=== PATIENT | male | born 1960 | race Caucasian/White ===

== ENCOUNTER 2017-11-24 19:06 | Inpatient (IN) | payer BC ==
[~2017-11-24] VITALS: Ht 180.3 cm; Wt 111.0 kg
[~2017-11-24 19:06] MED LIST: ADULT LOW DOSE81 M1 PO; ALEVE220 MG PO; Advair HFA 115/21 IH; CILOSTAZOL100 MG PO; FUROSEMIDE40 MG PO; GLUCOPHAGE1000 MG PO; Glucophage PO; HYDROCODON-ACE1 EAC8 PO; HYPERTENSION MED; Habitrol,Nicoderm CQ TD; LASIX40 MG PO; LISINOPRIL20 MG PO; LOPRESSOR25 MG PO; Lasix PO; Lopressor PO; METFORMIN HCL500 MG PO; METOPROLOL SUC100 MG PO; NORVASC5 MG PO; Norvasc PO; PRINIVIL20 MG PO; Zestril,Prinivil PO
[2017-11-24 19:36] LABS: HEMATOCRIT 35.6 % (38.0-50.0); HEMOGLOBIN 11.6 G/DL (12.5-16.6); MCH 27.1 PG (29.0-34.0); MCHC 32.6 G/DL (30.0-36.0); MCV 83.2 FL (86-99); PLATELET COUNT 130 K/uL (156-360); RBC DIS.WIDTH-CV 17.8 % (11.8-14.6); RBC DIS.WIDTH-SD 53.2 % (39-53); RED BLOOD COUNT 4.28 M/uL (4.00-5.50); WHITE BLOOD COUNT 6.4 K/uL (4.1-10.2)
[2017-11-24] MEDS ORDERED: HYDROCHLOROTH12.5 M3 PO (19:44)
[2017-11-24] MEDS ORDERED: AMARYL2 MG PO (19:44)
[2017-11-24 19:50] LABS: ALBUMIN 3.3 g/dL (3.2-4.8); CHLORIDE 109 mEq/L (99-109); POTASSIUM 5.6 mEq/L (3.7-5.4); SODIUM 139 mEq/L (136-147)
[2017-11-24 19:52] LABS: GLUCOSE 216 mg/dL (70-99)
[2017-11-24 19:53] LABS: TOTAL PROTEIN 6.7 g/dL (6.4-8.3)
[2017-11-24 19:54] LABS: TOTAL BILIRUBIN 1.5 mg/dL (0.0-1.0)
[2017-11-24 19:56] LABS: ALKALINE PHOSPHATASE 192 IU/L (3-129); CREATININE 1.8 mg/dL (0.6-1.3); GFR ESTIMATE (CALCULATED) 41 mL/min/ (58.99-99999)
[2017-11-24 19:57] LABS: UREA NITROGEN (BUN) 39 mg/dL (9-23)
[2017-11-24 19:58] LABS: AST (GOT) 23 IU/L (2-34)
[2017-11-24 19:59] LABS: ALT (GPT) 15 IU/L (3-49)
[2017-11-24 20:32] LABS: TROP-I INTERPRETATION NEGATIVE; TROPONIN-I 0.12 ng/mL (0.0-0.30)
[2017-11-24 21:15] LABS: APPEARANCE CLEAR ((CLEAR)); BILIRUBIN NEGATIVE; BLOOD SMALL; COLOR YELLOW ((YELLOW)); GLUCOSE (STRIP) NEGATIVE; KETONES NEGATIVE; LEUKOCYTES NEGATIVE; NITRITE NEGATIVE; PROTEIN (STRIP) 100; SPECIFIC GRAVITY 1.013 (1.000-1.030); UROBILINOGEN 0.2 MG/DL (0.2-1.0)
[2017-11-24] MEDS ORDERED: CINNAMON500 MG PO (21:18)
[2017-11-24] MEDS ORDERED: CENTRUM SILVER1 EAC5 PO (21:18)
[2017-11-24] MEDS ORDERED: METFORMIN HCL1000 MG PO (21:18)
[2017-11-24] MEDS ORDERED: VITAMIN B-1000 MCG/1 PO (21:18)
[2017-11-24 21:21] LABS: BACTERIA NONE SEEN /HPF; EPITHELIAL CELLS RARE /HPF; MUCUS TRACE /LPF; RED BLOOD CELLS 0-5 /HPF (0-5); UCUL ADDED? NO; WHITE BLOOD CELLS 0-5 /HPF (0-5)
[2017-11-24 23:30] VITALS: BP 164/80
[2017-11-25 04:00] VITALS: BP 150/67
[2017-11-25 05:21] LABS: MCH 26.4 PG (29.0-34.0); MCHC 31.4 G/DL (30.0-36.0); MCV 83.9 FL (86-99); PLATELET COUNT 129 K/uL (156-360); RBC DIS.WIDTH-CV 17.7 % (11.8-14.6); RBC DIS.WIDTH-SD 54.3 % (39-53); RED BLOOD COUNT 4.17 M/uL (4.00-5.50)
[2017-11-25 05:52] LABS: TROP-I INTERPRETATION NEGATIVE; TROPONIN-I 0.12 ng/mL (0.0-0.30)
[2017-11-25 06:05] LABS: CHLORIDE 110 MEQ/L (99-109); CREATININE 1.7 MG/DL (0.6-1.3); GFR ESTIMATE (CALCULATED) 44 mL/min/ (58.99-99999); GLUCOSE 133 mg/dL (70-99); POTASSIUM 5.4 MEQ/L (3.7-5.4); SODIUM 138 MEQ/L (136-147); UREA NITROGEN (BUN) 36 mg/dL (9-23)
[2017-11-25 06:37] LABS: MAGNESIUM 1.9 mg/dl (1.3-2.7)
[2017-11-25 06:42] LABS: PHOSPHORUS 3.5 mg/dL (2.5-4.9)
[2017-11-25 07:21] VITALS: BP 153/69
[2017-11-25 10:50] LABS: INTER. NORMALIZED RATIO 1.3
[2017-11-25 10:53] LABS: PTT 36.5 SEC (25-37)
[2017-11-25 11:44] LABS: TROP-I INTERPRETATION NEGATIVE; TROPONIN-I 0.12 ng/mL (0.0-0.30)
[2017-11-25 12:11] VITALS: BP 151/69
[2017-11-25 14:51] LABS: TYPE OF FLUID PARACENTESIS
[2017-11-25 15:35] LABS: BODY FLUID GLUCOSE 164 MG/DL; BODY FLUID LDH 66 IU/L
[2017-11-25 15:36] LABS: BODY FLUID PROTEIN < 3.0 G/DL
[2017-11-25 15:52] LABS: APPEARANCE HAZY-YELLOW; BODY FLUID EOSINOPHILS 0 % (0-25); BODY FLUID RBC'S 2000 /MM^3 (0-100); BODY FLUID WBC'S 314 /MM^3 (0-500); MONONUCLEAR WBC'S 97 %; POLYNUCLEAR WBC'S 3 % (0-25)
[2017-11-25 15:55] VITALS: BP 125/65
[2017-11-25 15:57] VITALS: BP 156/77
[2017-11-25 20:00] VITALS: BP 103/51
[2017-11-26] VITALS: BP 119/67
[2017-11-26 04:03] VITALS: BP 98/55
[2017-11-26 06:10] LABS: HEMATOCRIT 35.3 % (38.0-50.0); MCH 25.9 PG (29.0-34.0); MCHC 31.2 G/DL (30.0-36.0); MCV 83.3 FL (86-99); PLATELET COUNT 143 K/uL (156-360); RBC DIS.WIDTH-CV 17.6 % (11.8-14.6); RBC DIS.WIDTH-SD 53.4 % (39-53); RED BLOOD COUNT 4.24 M/uL (4.00-5.50); WHITE BLOOD COUNT 5.9 K/uL (4.1-10.2)
[2017-11-26 06:37] LABS: CHLORIDE 105 MEQ/L (99-109); GFR ESTIMATE (CALCULATED) 37 mL/min/ (58.99-99999); GLUCOSE 74 mg/dL (70-99); POTASSIUM 4.7 MEQ/L (3.7-5.4); SODIUM 136 MEQ/L (136-147); UREA NITROGEN (BUN) 43 mg/dL (9-23)
[2017-11-26 07:46] VITALS: BP 124/65
[2017-11-26 16:04] VITALS: BP 132/67
[2017-11-27] VITALS (7 sets, daily range): BP systolic 107–124; BP diastolic 53–66
[2017-11-27 06:21] LABS: HEMATOCRIT 36.9 % (38.0-50.0); HEMOGLOBIN 11.7 G/DL (12.5-16.6); MCH 26.7 PG (29.0-34.0); MCHC 31.7 G/DL (30.0-36.0); MCV 84.1 FL (86-99); PLATELET COUNT 140 K/uL (156-360); RBC DIS.WIDTH-CV 17.8 % (11.8-14.6); RBC DIS.WIDTH-SD 54.4 % (39-53); RED BLOOD COUNT 4.39 M/uL (4.00-5.50); WHITE BLOOD COUNT 6.9 K/uL (4.1-10.2)
[2017-11-27 06:57] LABS: CHLORIDE 102 MEQ/L (99-109); CREATININE 2.4 MG/DL (0.6-1.3); GFR ESTIMATE (CALCULATED) 30 mL/min/ (58.99-99999); SODIUM 134 MEQ/L (136-147); UREA NITROGEN (BUN) 56 mg/dL (9-23)
[2017-11-27 07:00] LABS: GLUCOSE 38 mg/dL (70-99)
[2017-11-28 02:10] LABS: UR CREATININE CONCENTRATION 103.4 MG/DL
[2017-11-28 03:33] VITALS: BP 108/53
[2017-11-28 05:52] LABS: HEMATOCRIT 36.4 % (38.0-50.0); HEMOGLOBIN 11.3 G/DL (12.5-16.6); MCH 25.9 PG (29.0-34.0); MCV 83.3 FL (86-99); PLATELET COUNT 128 K/uL (156-360); RBC DIS.WIDTH-CV 17.5 % (11.8-14.6); RBC DIS.WIDTH-SD 53.4 % (39-53); RED BLOOD COUNT 4.37 M/uL (4.00-5.50); WHITE BLOOD COUNT 6.8 K/uL (4.1-10.2)
[2017-11-28 06:34] LABS: ALBUMIN 3.2 G/DL (3.2-4.8); CHLORIDE 104 MEQ/L (99-109); CREATININE 2.7 MG/DL (0.6-1.3); GFR ESTIMATE (CALCULATED) 26 mL/min/ (58.99-99999); POTASSIUM 5.2 MEQ/L (3.7-5.4); SODIUM 132 MEQ/L (136-147); UREA NITROGEN (BUN) 65 mg/dL (9-23)
[2017-11-28 06:36] LABS: GLUCOSE 120 mg/dL (70-99); PHOSPHORUS 5.2 mg/dL (2.5-4.9)
[2017-11-28 07:48] VITALS: BP 129/66
[2017-11-28 08:04] LABS: ALBUMIN 3.1 G/DL (3.2-4.8); ALKALINE PHOSPHATASE 158 IU/L (3-129); ALT (GPT) 14 IU/L (3-49); AST (GOT) 23 IU/L (2-34); CHLORIDE 103 MEQ/L (99-109); CREATININE 2.7 MG/DL (0.6-1.3); FERRITIN 52 NG/ML (22-322); GFR ESTIMATE (CALCULATED) 26 mL/min/ (58.99-99999); GLUCOSE 117 mg/dL (70-99); IRON 54 MCG/DL (35-150); POTASSIUM 5.2 MEQ/L (3.7-5.4); SODIUM 133 MEQ/L (136-147); TRANSFERRIN (TIBC) 350.9 mg/dL (215-380); TRANSFERRIN SATUR. 15 % (20-55); UREA NITROGEN (BUN) 65 mg/dL (9-23); URIC ACID 9.1 mg/dL (3.1-9.2)
[2017-11-28 08:07] LABS: FOLIC ACID (FOLATE) 12.5 NG/ML (5.0-22.0)
[2017-11-28 10:21] LABS: HEPATITIS B SURFACE ANTIGEN Nonreactive; HEPATITIS C ANTIBODY Nonreactive
[2017-11-28 10:22] LABS: ANTI-HEPATITIS A VIRUS (IGM) Nonreactive
[2017-11-28 10:23] LABS: ANTI-HEPATITIS B CORE (IGM) Nonreactive
[2017-11-28 11:42] VITALS: BP 132/65
[2017-11-28 15:49] VITALS: BP 125/67
[2017-11-28 20:29] VITALS: BP 125/60
[2017-11-28 23:59] VITALS: BP 152/68
[2017-11-29 03:47] VITALS: BP 133/62
[2017-11-29 06:42] LABS: BASOPHIL (%) 0.8 % (0-1); BASOPHIL COUNT 0.1 K/uL (0-0.1); EOSINOPHIL (%) 2.2 % (0-5); EOSINOPHIL COUNT 0.1 K/uL (0-0.3); HEMATOCRIT 35.4 % (38.0-50.0); HEMOGLOBIN 11.3 G/DL (12.5-16.6); IMMATURE GRANULOCYTE (%) 0.3 % (0.0-0.7); LYMPHOCYTE (%) 19.1 % (15-42); LYMPHOCYTE COUNT 1.2 K/uL (1.0-2.8); MCH 26.5 PG (29.0-34.0); MCHC 31.9 G/DL (30.0-36.0); MCV 83.1 FL (86-99); MONOCYTE (%) 12.5 % (3-12); MONOCYTE COUNT 0.8 K/uL (0-0.8); NEUTROPHIL (%) 65.1 % (45-76); NEUTROPHIL COUNT 4.2 K/uL (1.8-6.4); PLATELET COUNT 130 K/uL (156-360); RBC DIS.WIDTH-CV 17.5 % (11.8-14.6); RBC DIS.WIDTH-SD 52.5 % (39-53); RED BLOOD COUNT 4.26 M/uL (4.00-5.50); WHITE BLOOD COUNT 6.5 K/uL (4.1-10.2)
[2017-11-29 07:26] LABS: ALBUMIN 3.4 G/DL (3.2-4.8); CHLORIDE 104 MEQ/L (99-109); CREATININE 2.4 MG/DL (0.6-1.3); GFR ESTIMATE (CALCULATED) 30 mL/min/ (58.99-99999); GLUCOSE 136 mg/dL (70-99); POTASSIUM 5.1 MEQ/L (3.7-5.4); SODIUM 132 MEQ/L (136-147); UREA NITROGEN (BUN) 64 mg/dL (9-23)
[2017-11-29 07:30] VITALS: BP 131/70
[2017-11-29 12:07] VITALS: BP 150/78
[2017-11-29] MEDS ORDERED: ATORVASTATIN CA40 MG PO (13:02)
[2017-11-29] MEDS ORDERED: TOPROL XL25 MG PO (13:03)
== END 2017-11-29 14:47 | disposition home or self-care (01) | DRG 947 ==
LOC: EME 19:06 → EDOF 22:09 → 5SOUTH 22:09 → ENRESERV 22:15 → 5SOUTH 23:30
PROVIDERS: Hospitalist; Internal Medicine; Internal Medicine Nephrology; Radiology Diagnostic Radiology
PROC: 0W9G3ZZ Drainage of Peritoneal Cavity, Percutaneous Approach (ICD-10-PCS; principal; 2017-11-25)
DX: R18.8 Other ascites (principal); I50.23 Acute on chronic systolic (congestive) heart failure; E11.649 Type 2 diabetes mellitus with hypoglycemia without coma; N17.9 Acute kidney failure, unspecified; E66.9 Obesity, unspecified; E66.01 Morbid (severe) obesity due to excess calories; I27.20 Pulmonary hypertension, unspecified; I13.0 Hypertensive heart and chronic kidney disease with heart failure and stage 1 through stage 4 chronic kidney disease, or unspecified chronic kidney disease; E11.22 Type 2 diabetes mellitus with diabetic chronic kidney disease; I11.0 Hypertensive heart disease with heart failure; E11.51 Type 2 diabetes mellitus with diabetic peripheral angiopathy without gangrene; E87.5 Hyperkalemia; E78.5 Hyperlipidemia, unspecified; F17.210 Nicotine dependence, cigarettes, uncomplicated; J44.9 Chronic obstructive pulmonary disease, unspecified; K74.60 Unspecified cirrhosis of liver; N18.4 Chronic kidney disease, stage 4 (severe); R60.1 Generalized edema; I08.1 Rheumatic disorders of both mitral and tricuspid valves; K59.00 Constipation, unspecified; E87.1 Hypo-osmolality and hyponatremia; I87.2 Venous insufficiency (chronic) (peripheral); E78.00 Pure hypercholesterolemia, unspecified; Z80.1 Family history of malignant neoplasm of trachea, bronchus and lung; Z80.42 Family history of malignant neoplasm of prostate; Z68.34 Body mass index [BMI] 34.0-34.9, adult; Z79.84 Long term (current) use of oral hypoglycemic drugs; K80.20 Calculus of gallbladder without cholecystitis without obstruction
CPT/HCPCS: 49083; 71045; 71046; 74176; 80048; 80053; 80069; 80074; 81003; 82040; 82570; 82607; 82728; 82746; 82945; 82948; 83540; 83615 91; 83735; 83880; 83935; 84100; 84157; 84300; 84466; 84484; 84550; 85025; 85027; 85610; 85730; 87070; 87205; 88108; 88305; 89051; 93005; 93306; 99281; 99285; J1644; J1815; J1940; J2405; P9047

== ENCOUNTER → 2017-12-27 | Outpatient (CLI) | payer BC ==
[~2017-12-27] MED LIST changes: +AMARYL2 MG PO; +ATORVASTATIN CA40 MG PO; +CENTRUM SILVER1 EAC5 PO; +CINNAMON500 MG PO; +HYDROCHLOROTH12.5 M3 PO; +METFORMIN HCL1000 MG PO; +TOPROL XL25 MG PO; +VITAMIN B-1000 MCG/1 PO
[2017-12-27 14:45] LABS: TYPE OF FLUID PARACENTESIS
[2017-12-27 14:57] LABS: APPEARANCE SL. HAZY-YELLOW; BODY FLUID RBC'S 2000 /MM^3 (0-100); BODY FLUID WBC'S 302 /MM^3 (0-500)
[2017-12-27 16:33] LABS: BODY FLUID EOSINOPHILS 0 % (0-25); MONONUCLEAR WBC'S 66 %; POLYNUCLEAR WBC'S 34 % (0-25)
== END | disposition home or self-care (01) ==
LOC: RAD 13:24
PROVIDERS: Internal Medicine Gastroenterology
PROC: 0W9G3ZZ Drainage of Peritoneal Cavity, Percutaneous Approach (ICD-10-PCS; principal; 2017-12-27)
DX: R18.8 Other ascites (principal); K74.60 Unspecified cirrhosis of liver
CPT/HCPCS: 49083; 89051

== ENCOUNTER → 2018-01-11 | Outpatient (CLI) | payer BC ==
[~2018-01-11] VITALS: Ht 180.3 cm; Wt 89.8 kg
[~2018-01-11] MED LIST changes: +ASPIRIN81 M2 PO; +ENTRESTO 24 MG1 EACH PO; +FLUID PILL PO; +LIPITOR40 MG PO
== END | disposition home or self-care (01) ==
LOC: AMB 12-28 10:00
PROVIDERS: Internal Medicine Gastroenterology
PROC: 0DB98ZX Excision of Duodenum, Via Natural or Artificial Opening Endoscopic, Diagnostic (ICD-10-PCS; principal; 2018-01-11)
PROC: 0DB68ZX Excision of Stomach, Via Natural or Artificial Opening Endoscopic, Diagnostic (ICD-10-PCS; principal; 2018-01-11)
DX: K29.90 Gastroduodenitis, unspecified, without bleeding (principal); K31.89 Other diseases of stomach and duodenum; K76.6 Portal hypertension; K74.60 Unspecified cirrhosis of liver; N04.9 Nephrotic syndrome with unspecified morphologic changes; I11.0 Hypertensive heart disease with heart failure; I50.21 Acute systolic (congestive) heart failure; E78.5 Hyperlipidemia, unspecified; I08.1 Rheumatic disorders of both mitral and tricuspid valves; F17.200 Nicotine dependence, unspecified, uncomplicated; Z98.890 Other specified postprocedural states
CPT/HCPCS: 82948; 85610; 85730; 88305; 88342 TC